=== PATIENT | female | born 1945 | race Caucasian/White ===

== ENCOUNTER 2020-05-17 17:43 | Emergency (ER) | payer MEDICARE, OTHER, SELFPAY ==
[2020-05-17 17:50] VITALS: BP 127/76; PULSE 131; RESP 16; TEMP 36.8; O2SAT 98; BMI 29.2
[2020-05-17 18:14] VITALS: BP 143/91; PULSE 109; RESP 16; TEMP 36.9; O2SAT 98
--- NOTE | 2020-05-17 18:23 | ECG_ITS ---
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 Measurements Intervals [place] Rate: 126 P: [place]: -1 QRS: -71 QRSD: 76 T: 27 QT: 308 QTc: 447 Interpretive Statements ATRIAL FIBRILLATION WITH RAPID VENTRICULAR RESPONSE MARKED LEFT AXIS DEVIATION [QRS AXIS < -30] SEPTAL MYOCARDIAL INFARCTION [40+ ms Q WAVE IN V1/V2], PROBABLY OLD Compared to ECG 10/27/2017 14:40:24 Left-axis deviation now present Left anterior fascicular block no longer present Myocardial infarct finding still present Electronically Signed On 05-18-2020 18:20:56 CDT by Samira Hager M.D. [id number]
[2020-05-17 18:30] LABS: Basophils # 0.1 10^3/uL (0.0-0.1); Basophils % 0.7 %; Eosinophils # 0.2 10^3/uL (0.0-0.8); Eosinophils % 1.5 %; Hematocrit 42.5 % (37.0-47.0); Lymphocytes # 5.4 10^3/uL (0.8-4.8); Lymphocytes % 49.1 %; Mean Corpuscular HGB Conc 32.9 g/dL (30.0-36.0); Mean Corpuscular Volume 91.2 fL (81-99); Mean Platelet Volume 9.8 fL (7.4-10.4); Monocytes # 0.7 10^3/uL (0.2-0.9); Monocytes % 6.1 %; Neutrophils # 4.62 10^3/uL (1.8-7.7); Neutrophils % 42.4 %; Nucleated Red Blood Cells % 0 %; Platelet Count 317 10^3/cmm (130-400); Red Blood Count 4.66 10^6/uL (4.1-5.3); Red Cell Distribution Width 13.1 % (12.1-15.1); White Blood Count 10.9 10^3/uL (4.0-10.0)
--- NOTE | 2020-05-17 18:30 | ED_ITS ---
HPI - Arrhythmia/Palpitations General: Chief Complaint: Arrhythmia/Palpitations Stated Complaint: irregular hb Time Seen by Provider: 05/17/20 18:14 History of Present Illness: HPI narrative: This patient is a 74-year-old female who presents today with A. fib. She has a history of paroxysmal A. fib. The last time she had to come to the hospital was over a year ago. She takes Cardizem, Xarelto, metoprolol on a regular basis. She was feeling fine today an d lay down to take a nap. When she got up from the nap she felt fatigued and could feel her heart beating irregularly. She came into the ER and is hoping to have us converted back to sinus and send her home. She is never had to be cardioverted electrically before and has converted with an extra dose of Cardizem. She denies chest pain, shortness of breath, fever, cough. MD complaint: atrial fibrillation Onset (ago): hour(s) (2) Duration: constant Severity: similar to previous episodes Context: occurred during rest Arrhythmia history: atrial fibrillation Associated symptoms: Deny nausea or vomiting Review of Systems General: Reports: 10 or more systems reviewed and unremarkable except in HPI and below Const: Denies: fever(s), chills, fatigue or malaise Eyes: Denies: change in vision ENMT: Denies: odynophagia Card: Denies: chest pain or swelling of feet/ankles Resp: Denies: dyspnea, productive cough or non-productive cough GI: Denies: abdominal pain, nausea or vomiting : Denies: flank pain or difficulty voiding Musc: Denies: neck pain or back pain Skin/Breast: Denies: rash Neuro: Denies: headache(s), numbness in extremities or weakness in extremities Floyd/Lymph: Denies: easy bruising or easy bleeding Physical Exam Const: COMMON NORMALS: no acute distress, patient oriented x3, no limitations and alert GENERAL APPEARANCE: cooperative and comfortable HENMT: HEAD & SCALP: normal to inspection FACE & SINUS: normal facial exam Eye: GENERAL EYE: appearance normal, both eyes and all related structures Neck/C-Spine: COMMON NORMALS: supple and no meningeal signs Chest: COMMONS NORMALS: normal inspection of the chest Resp: COMMON NORMALS: normal respiratory effort, No use of accessory muscles and clear to auscultation bilaterally AUSCULTATION: clear to auscultation bilaterally Cardio: COMMON NORMALS: No murmurs present (Cardio) RATE: tachycardic RHYTHM: abnormal rhythm irregularly irregular GI: COMMON NORMALS: Normal to inspection, nondistended, normoactive bowel sounds present, Soft to palpation and non-tender INSPECTION: Yes normal to inspection AUSCULTATION: Yes normoactive bowel sounds PALPATION: Yes Soft to palpation Back/Pelvis: COMMON NORMALS: thoracic and lumbar spine normal to inspection Extremity: COMMON NORMALS: normal to inspection Neuro: COMMON NORMALS: patient oriented x3, moves all extremities, no focal motor deficits and no sensory deficits noted SENSORIUM/ORIENTATION: Yes alert MENINGEAL SIGNS: Yes no meningeal signs Psych: COMMON NORMALS: mental status grossly normal, cooperative and normal affect Skin: COMMON NORMALS: no rashes or lesions noted and turgor normal GENERAL SKIN EXAM: no rashes or lesions noted and turgor normal Course ED course: This patient had no complaints while in department. She was very eager to go home. She was given a dose of IV diltiazem which did bring her heart rate down but did not convert her. Still not totally convinced that she is usually in a sinus rhythm as opposed to just a rate controlled A. fib. She is not really sure about this either. She did not want to have cardioversion and did not want to wait for further medication to work. I did give her an extra dose of metoprolol she is only on a small dose at home. This further brought her heart rate down but she still remained in A. fib. She wanted to be discharged and given that her work-up is benign and her A. fib is chronic I felt comfortable with that. She will follow-up with cardiology to see if she needs any medication adjustments. Vital Signs: Vital signs: Vital Signs Temperature 98.4 F 05/17/20 18:14 Pulse Rate 86 05/17/20 19:32 Respiratory Rate 18 05/17/20 19:32 Blood Pressure 146/75 05/17/20 19:32 Pulse Oximetry 98 05/17/20 19:32 MDM - Arrhythmia/Palpitations Lab Data: Labs: Lab Results 05/17/20 05/17/20 05/17/20 Range/Units 18:10 18:10 18:10 WBC 10.9 H (4.0-10.0) 10^3/ uL RBC 4.66 (4.1-5.3) 10^6/u L Hgb 14.0 (11.5-15.3) g/dL Hct 42.5 (37.0-47.0) % MCV 91.2 (81-99) fL MCH 30.0 (28.0-34.0) pg MCHC 32.9 (30.0-36.0) g/dL RDW 13.1 (12.1-15.1) % Plt Count 317 (130-400) 10^3/c mm MPV 9.8 (7.4-10.4) fL Neut % (Auto) 42.4 % Lymph % (Auto) 49.1 % [place] % (Auto) 6.1 % Eos % (Auto) 1.5 % Baso % (Auto) 0.7 % Neut # (Auto) 4.62 (1.8-7.7) 10^3/u L Lymph # (Auto) 5.4 H (0.8-4.8) 10^3/u L [place] # (Auto) 0.7 (0.2-0.9) 10^3/u L Eos # (Auto) 0.2 (0.0-0.8) 10^3/u L Baso # (Auto) 0.1 (0.0-0.1) 10^3/u L Nucleated RBC % (a uto) 0 % Nucleated RBCs # 0.0 /100WBC Sodium 141 (136-145) mmol/L Potassium 3.9 (3.5-5.1) mmol/L Chloride 105 (98-107) mmol/L Carbon Dioxide 24 (22-29) mmol/L Anion Gap 15.9 (5-19) BUN 13 (8-23) mg/dL Creatinine 0.7 (0.5-0.9) mg/dL GFR Calculation Not Reportable Glucose 120 H (65-115) mg/dL Calculated Osmolal ity 293 (285-295) mOsm/k g Calcium 9.7 (8.5-10.5) mg/dL Magnesium 2.2 (1.7-2.3) mg/dL Total Bilirubin 0.4 (0.15-1.2) mg/dL AST 21 (0-32) U/L ALT 20 (0-33) U/L Alkaline Phosphata se 105 (35-105) IU/L Troponin T Baselin e 6 (0-10) ng/L Troponin T 120 Min [place] (0-10) ng/L Delta Troponin T (0-10) ABS# Total Protein 7.3 (6.6-8.7) g/dL Albumin 4.6 (3.5-5.2) g/dL Globulin 2.7 (1.3-4.6) g/dL 05/17/20 Range/Units 20:17 WBC (4.0-10.0) 10^3/ uL RBC (4.1-5.3) 10^6/u L Hgb (11.5-15.3) g/dL Hct (37.0-47.0) % MCV (81-99) fL MCH (28.0-34.0) pg MCHC (30.0-36.0) g/dL RDW (12.1-15.1) % Plt Count (130-400) 10^3/c mm MPV (7.4-10.4) fL Neut % (Auto) % Lymph % (Auto) % [place] % (Auto) % Eos % (Auto) % Baso % (Auto) % Neut # (Auto) (1.8-7.7) 10^3/u L Lymph # (Auto) (0.8-4.8) 10^3/u L [place] # (Auto) (0.2-0.9) 10^3/u L Eos # (Auto) (0.0-0.8) 10^3/u L Baso # (Auto) (0.0-0.1) 10^3/u L Nucleated RBC % (a uto) % Nucleated RBCs # /100WBC Sodium (136-145) mmol/L Potassium (3.5-5.1) mmol/L Chloride (98-107) mmol/L Carbon Dioxide (22-29) mmol/L Anion Gap (5-19) BUN (8-23) mg/dL Creatinine (0.5-0.9) mg/dL GFR Calculation Glucose (65-115) mg/dL Calculated Osmolal ity (285-295) mOsm/k g Calcium (8.5-10.5) mg/dL Magnesium (1.7-2.3) mg/dL Total Bilirubin (0.15-1.2) mg/dL AST (0-32) U/L ALT (0-33) U/L Alkaline Phosphata se (35-105) IU/L Troponin T Baselin e (0-10) ng/L Troponin T 120 Min [place] 6.00 (0-10) ng/L Delta Troponin T 0 (0-10) ABS# Total Protein (6.6-8.7) g/dL Albumin (3.5-5.2) g/dL Globulin (1.3-4.6) g/dL Discharge Plan Discharge Patient Disposition: Home Clinical Impression: Atrial fibrillation Qualifiers: Atrial fibrillation type: unspecified chronic Qualified Code(s): I48.20 - Chronic atrial fibrillation, unspecified Condition: Stable Prescriptions: No Action metoprolol tartrate 25 mg tablet 12.5 mg PO BID RF: 0 aspirin [Adult Aspirin Regimen] 81 mg tablet,delayed release (DR/EC) 81 mg PO DAILY RF: 0 diltiazem HCl [Cartia XT] 120 mg capsule,extended release 24hr 120 mg PO DAILY Qty: 90 RF: 3 Xarelto 20 mg tablet 20 mg PO DAILY Qty: 90 RF: 3 Discharge Orders: Discharge Order (Routine); Ordered 05/17/20 Ordered By: Kelly De La Torre Referrals: Edgard Mcfarland M.D [Family Provider] - Andre Roper DO [Primary Care Provider] - Discharge Diet: Usual diet Discharge Activity: Resume usual activity Patient Instructions: Atrial Fibrillation (ED) Activity Restrictions/Additional Instructions: Follow-up with your sales development director to see if you might need adjustment of your medication doses. If you have another episode at home where your heart is racing you can safely take another half tablet of the metoprolol. If that does not help or if you are having chest pain or severe symptoms please return to the emergency room right away. Coding Level of Care Code ED Helicopter Specialist for Gabriel Ny Exam Comprehensive
[2020-05-17] MEDS: sodium chloride 0.9% 1,000 ML 999 ML IV (18:33)
[2020-05-17 18:50] LABS: Alanine Aminotransferase 20 U/L (0-33); Albumin Level 4.6 g/dL (3.5-5.2); Alkaline Phosphatase 105 IU/L (35-105); Anion Gap 15.9 (5-19); Aspartate Amino Transferase 21 U/L (0-32); Blood Urea Nitrogen 13 mg/dL (8-23); Calcium 9.7 mg/dL (8.5-10.5); Carbon Dioxide 24 mmol/L (22-29); Chloride 105 mmol/L (98-107); Globulin 2.7 g/dL (1.3-4.6); Glucose 120 mg/dL (65-115); Magnesium 2.2 mg/dL (1.7-2.3); Osmolality Calculated 293 mOsm/kg (285-295); Potassium 3.9 mmol/L (3.5-5.1); Sodium 141 mmol/L (136-145); Total Bilirubin 0.4 mg/dL (0.15-1.2); Total Protein 7.3 g/dL (6.6-8.7); Troponin(5th) Baseline 6 ng/L (0-10)
[2020-05-17 18:59] LABS: Slide Review Slide Review Perform
[2020-05-17 19:32] VITALS: BP 146/75; PULSE 86; RESP 18; O2SAT 98
--- NOTE | 2020-05-17 20:23 | ECG_ITS ---
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 Measurements Intervals [place] Rate: 86 P: [place]: -1 QRS: -54 QRSD: 77 T: 14 QT: 372 QTc: 446 Interpretive Statements ATRIAL FIBRILLATION MARKED LEFT AXIS DEVIATION [QRS AXIS < -30] LOW QRS VOLTAGE IN PRECORDIAL LEADS [QRS DEFLECTION < 1.0 mV IN CHEST LEADS] SEPTAL MYOCARDIAL INFARCTION [40+ ms Q WAVE IN V1/V2], PROBABLY OLD Compared to ECG 05/17/2020 17:58:02 Low QRS voltage now present Myocardial infarct finding still present Electronically Signed On 05-18-2020 18:36:55 CDT by Samira Hager M.D. [id number]
[2020-05-17] MEDS: metoprolol tartrate 1 mg/1 mL SDV 5 mL 5 MG IV (20:48)
[2020-05-17 21:12] LABS: Troponin 5 2HR Delta 0 ABS# (0-10)
[2020-05-17 22:07] VITALS: BP 134/88; PULSE 84; RESP 18; TEMP 36.3; O2SAT 98
== END 2020-05-17 22:05 | disposition home or self-care (01) ==
PROVIDERS: Emergency Provider Emergency Medicine; Family Provider Internal Medicine; PCP Internal Medicine
DX: I48.20 Chronic atrial fibrillation, unspecified (principal); Z79.82 Long term (current) use of aspirin
CPT/HCPCS: 12345; 36415; 80053; 83735; 84484; 85025; 93005; 96361; 96374; 96375; 99283; 99284; J3490; J7030

== ENCOUNTER 2020-06-25 11:22 | Outpatient (CLI) | payer MEDICARE, OTHER, SELFPAY ==
--- NOTE | 2020-06-25 11:30 | MM_ITS ---
WS: [id number] Exam: [id number] Date/Time of Exam: 06/25/2020 11:30 AM Reason For Exam: SCREENING VIEWS: MLO and CC views both breasts. Comparison made with prior exam of 03/04/2017. Findings: There was no sign of mass, architectural distortion or suspicious calcification in either breast. He terogeneously dense MM/[id number] Impression: BI-RADS: 2-Benign FOLLOW-UP: 1 Year Follow-up This mammogram was also analyzed by the Computer Aided Detection System R2 Imag e Financial Service Representative.
== END 2020-06-25 11:23 | disposition home or self-care (01) ==
LOC: RADSHAW 11:27
PROVIDERS: Family Provider Internal Medicine; PCP Internal Medicine; Visit Provider Internal Medicine
DX: Z12.31 Encounter for screening mammogram for malignant neoplasm of breast (principal)
CPT/HCPCS: 77067

== ENCOUNTER 2021-06-29 09:15 | Outpatient (CLI) | payer MEDICARE, OTHER, SELFPAY ==
--- NOTE | 2021-06-29 09:25 | MM_ITS ---
WS: [id number] BILATERAL DIGITAL SCREENING MAMMOGRAPHY WITH CAD CLINICAL INFORMATION: SCREENING HISTORY: Screening mammogram. No current complaints. COMPARISON: June 26, 2020 TECHNIQUE: Bilateral CC and MLO views. FINDINGS: The breasts are composed of heterogeneous fibroglandular density tissue, which can limit the detectio n of small underlying mass lesions. Benign punctate and lucent centered calcifications. Stable cluste red calcifications right breast. No suspicious mass, asymmetry, calcifications, or architectural dist ortion. No evidence of malignancy. MM/[id number] IMPRESSION: BI-RADS: 2-Benign FOLLOW UP: 1 Year Follow-up Recommend return to annual screening mammography.
== END 2021-06-29 09:16 | disposition home or self-care (01) ==
LOC: RADSHAW 09:24
PROVIDERS: PCP Internal Medicine; Visit Provider Internal Medicine
DX: Z12.31 Encounter for screening mammogram for malignant neoplasm of breast (principal)
CPT/HCPCS: 77067

== ENCOUNTER 2021-08-18 12:18 | Outpatient (CLI) | payer MEDICARE, OTHER, SELFPAY ==
--- NOTE | 2021-08-18 13:04 | CT_ITS ---
WS: [id number] CT ABDOMEN PELVIS TECHNIQUE: Noncontrast CT of the abdomen and pelvis with coronal and sagittal reformatted images. CLINICAL INFORMATION: HYDRONEPHROSIS COMPARISON: None. DLP: 1236.[address] scans at [facility] use at least one of these dose optimization techniques: automated e xposure control; mA and/or kV adjustment per patient size (includes targeted exams where dose is matc hed to clinical indication); or iterative reconstruction. FINDINGS: Mild right hydronephrosis with moderate dilated extrarenal pelvis unchanged in appearance since the I COMMUNITY OUTREACH COORDINATOR in 2005. Transition to normal caliber ureter at the UPJ. Distal right ureter is decompressed. No o bstructing renal or ureteral calculi. 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 This is also unchanged in ap pearance since the IVP 1989 Noncontrast left kidney is normal in appearance. No obstructing left renal or ureteral calculi. Tiny nonobstructing lower pole calyceal tip calculus. Adrenal glands are normal. Lung bases are well aerated. Cholecystectomy clips. Normal noncontrast liver. Normal GE junction. Fat ty atrophy of the pancreas. Normal noncontrast spleen. Normal caliber abdominal aorta. Mild aortic ca lcification. Sigmoid diverticulosis. No evidence of acute diverticulitis. No evidence of high-grade small or large bowel obstruction. Tiny fat-containing umbilical hernia. Bladder is decompressed. Mild lumbar curve. No acute compression. CT/CT kidney stone [id number] IMPRESSION: 1. Mild right hydronephrosis with dilated extrarenal pelvis. This is unchanged in appearance since the IVP in 1989. 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 2. No obstructing renal or ureteral calculi bilaterally. 3. Prior cholecystectomy. 4. Sigmoid diverticulosis. No evidence of acute diverticulitis. 5. No other acute findings.
== END 2021-08-18 12:19 | disposition home or self-care (01) ==
PROVIDERS: PCP Internal Medicine; Visit Provider Internal Medicine
DX: N13.30 Unspecified hydronephrosis (principal); K57.30 Diverticulosis of large intestine without perforation or abscess without bleeding; Z90.49 Acquired absence of other specified parts of digestive tract
CPT/HCPCS: 74176

== ENCOUNTER → 2022-05-13 13:33 | Outpatient (BNVA) | payer MEDICARE, OTHER, SELFPAY | PROVIDERS: PCP Internal Medicine; Visit Provider Internal Medicine | DX: I48.91 Unspecified atrial fibrillation (principal); R00.2 Palpitations; I10 Essential (primary) hypertension; Z87.891 Personal history of nicotine dependence | CPT/HCPCS: 99213 ==

== ENCOUNTER 2022-09-22 15:05 | Outpatient (CLI) | payer MEDICARE, OTHER, SELFPAY ==
--- NOTE | 2022-09-22 15:11 | MM_ITS ---
WS: [id number] Bilateral screening 3D tomosynthesis digital mammogram, 09/22/2022 Clinical Data: SCREENING Comparison: 06/29/2021, 06/25/2020, 06/18/2019, 05/09/2018, 03/04/2017, 04/29/2009, 02/21/2007, 08/25/2006 . Findings: The breast parenchymal pattern shows heterogeneous density. No spiculated masses or clustered calcifi cations are seen. There are no secondary signs of carcinoma. There are mole markers on the right shila st. There are small axillary lymph nodes bilaterally MM/[place] [id number] Impression: 1. Negative bilateral mammogram unchanged. 2. Recommend annual screening mammograms. BIRADS: 1-Negative FOLLOW UP: 1 Year Follow-up The CAD production checker was used.
== END 2022-09-22 15:06 | disposition home or self-care (01) ==
LOC: RAD 15:05
PROVIDERS: PCP Internal Medicine; Visit Provider Internal Medicine
DX: Z12.31 Encounter for screening mammogram for malignant neoplasm of breast (principal)
CPT/HCPCS: 77063; 77067

== ENCOUNTER → 2023-05-12 13:29 | Outpatient (BNVA) | payer MEDICARE, OTHER, SELFPAY | PROVIDERS: PCP Internal Medicine; Visit Provider Internal Medicine | DX: I48.91 Unspecified atrial fibrillation (principal); R00.2 Palpitations; I10 Essential (primary) hypertension; Z87.891 Personal history of nicotine dependence; Z79.01 Long term (current) use of anticoagulants | CPT/HCPCS: 99214 ==

== ENCOUNTER → 2023-07-07 07:38 | Outpatient (BNVA) | payer MEDICARE, OTHER, SELFPAY | PROVIDERS: PCP Internal Medicine; Visit Provider Podiatrist Foot & Ankle Surgery | DX: L60.3 Nail dystrophy (principal); L60.8 Other nail disorders | CPT/HCPCS: 99203 ==

== ENCOUNTER 2023-11-23 07:41 | Outpatient (CLI) | payer MEDICARE, OTHER, SELFPAY ==
--- NOTE | 2023-11-23 07:47 | CT_ITS ---
WS: [id number] CT ABDOMEN AND PELVIS WITH AND WITHOUT CONTRAST HISTORY: MICRO HEMATURIA TECHNIQUE: Unenhanced 5 mm axial imaging first performed through the abdomen and pelvis. Post contras t imaging through the abdomen and pelvis. Oral contrast has not been provided. Sagittal and coronal reformats are submitted. All CT scans at [facility] use at least one of these dose optimizati on techniques: automated exposure control; mA and/or kV adjustment per patient size (includes targete d exams where dose is matched to clinical indication); or iterative reconstruction. CONTRAST: Omnipaque 350; 95 mL IV. DLP: 1536.48 mGy.cm COMPARISON: CT 08/18/2021, renal ultrasound 07/19/2023, IVP 05/30/2090 Lung bases are clear. Mild enlargement of the heart. Small hiatal hernia. RIGHT kidney: Normal size kidney. Reidentified is mild caliectasis of the RIGHT kidney and a dilated extrarenal pelvis. There is a change in caliber at the UP junction. This is been previously described since 1989. There is no calcification or mass. Normal excretion from the kidney is symmetric to the LEFT kidney. No excretion of contrast into the ureter due to the dilated extrarenal pelvis. The calib er of the distal ureter is normal. LEFT kidney: Normal size. No calcifications are identified. No uroepithelial lesions. Small caliber L EFT ureter. No solid mass or cyst. Normal liver and spleen. Prior cholecystectomy. Normal portal vein. Normal pancreas. Moderate atheros clerosis aorta. No aneurysm of the aorta. No adrenal mass. Stomach is normal. No small bowel obstruct ion. Normal appendix. Moderate diverticular disease in the distal colon without acute diverticulitis. No abscess or adenopathy. No free fluid or free air. Urinary bladder is not distended. There are no f illing defects within the bladder. There is a surgical clip deep within the pelvis just posterior to the urinary bladder. IMPRESSION: 1. 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 This has been described since 1989 without significant progression. 2. No uroepithelial lesions are identified. 3. No renal calcifications or ureteral calcifications. 4. Moderate diverticular disease in the distal colon. No acute diverticulitis. 5. Prior cholecystectomy.
[2023-11-23 08:26] LABS: Blood Urea Nitrogen 11 mg/dL (8-23)
[2023-11-23] MEDS: iohexol 350 mg/mL 500 mL Btl (per mL) IV (08:49)
== END 2023-11-23 07:42 | disposition home or self-care (01) ==
LOC: RAD 07:42
PROVIDERS: Radiology Diagnostic Radiology; PCP Family Medicine; Visit Provider Family Medicine
DX: R31.29 Other microscopic hematuria (principal); K57.90 Diverticulosis of intestine, part unspecified, without perforation or abscess without bleeding; Z90.89 Acquired absence of other organs
CPT/HCPCS: 74178; 82565; 84520; Q9967

== ENCOUNTER → 2024-05-10 13:42 | Outpatient (BNVA) | payer MEDICARE, OTHER, SELFPAY | PROVIDERS: PCP Family Medicine; Visit Provider Internal Medicine | DX: I48.91 Unspecified atrial fibrillation (principal); R00.2 Palpitations; I10 Essential (primary) hypertension; Z79.01 Long term (current) use of anticoagulants | CPT/HCPCS: 99213 ==

== ENCOUNTER → 2025-01-07 15:07 | Outpatient (BNVA) | payer MEDICARE, SELFPAY | PROVIDERS: PCP Family Medicine; Visit Provider Nurse Practitioner | DX: M16.12 Unilateral primary osteoarthritis, left hip (principal) | CPT/HCPCS: 73502; 99204 ==

== ENCOUNTER → 2025-01-18 11:53 | Outpatient (BNVA) | payer MEDICARE, SELFPAY | PROVIDERS: PCP Family Medicine; Visit Provider Specialist | DX: M16.12 Unilateral primary osteoarthritis, left hip (principal) | CPT/HCPCS: 20610; 77002; J1100; J2795; J3301; J9999 ==

== ENCOUNTER → 2025-03-08 13:04 | Outpatient (BNVA) | payer MEDICARE, SELFPAY | PROVIDERS: PCP Family Medicine; Visit Provider Nurse Practitioner | DX: M16.12 Unilateral primary osteoarthritis, left hip (principal) | CPT/HCPCS: 99213 ==

== ENCOUNTER → 2025-05-09 13:41 | Outpatient (BNVA) | payer MEDICARE, OTHER, SELFPAY | PROVIDERS: PCP Family Medicine; Visit Provider Internal Medicine | DX: I48.91 Unspecified atrial fibrillation (principal); I10 Essential (primary) hypertension | CPT/HCPCS: 99213 ==